=== PATIENT | female | born 1980 | race Caucasian/White ===

== ENCOUNTER 2018-12-04 14:30 | Inpatient (IN) ==
--- NOTE | 2018-12-04 13:42 | MH ---
cc: Pb Steen MD DATE OF ADMISSION: 12/04/2018 ADMITTING DIAGNOSES: 1. Intrauterine at 37-38 weeks. 2. Advanced maternal age. 3. Previous section. 4. Anterior low lying placenta. 5. Coagulation disorder. 6. Gunjan's thyroiditis. HISTORY OF PRESENT ILLNESS: The patient is a 38-year-old white female, para 1-0-3-1, with an EDC of 12/24/2018 by known in vitro fertilization dates. She has been followed by several specialists due to history of coagulation disorder and multiple losses. She has been maintained on anticoagulation and prednisone throughout the . She is now admitted for delivery at this time for the above-mentioned risk factors and the recommendation of the maternal specialist at the [facility] in [place]. PAST SURGICAL HISTORY: for failure to progress in 2003, she had breast augmentation in 2005, LASIK surgery in 2006, left breast biopsy in 2016. MEDICATIONS: 1. Vitamins. 2. Synthroid. 3. Heparin. 4. Prednisone. 5. Vitamins. ALLERGIES: VITAMIN B. OBSTETRIC HISTORY: One term delivery. Three spontaneous abortions. SOCIAL HISTORY: She is home, employed, . Alcohol, tobacco and drugs are none. PAST MEDICAL HISTORY: Gunjan's, coagulopathy, loss. PHYSICAL EXAMINATION: GENERAL: She is a well-nourished, well-developed white female. VITAL SIGNS: Stable. HEENT: Normal. CHEST: Clear. HEART: Regular rate. BREASTS: Symmetrical. ABDOMEN: Gravid. EFW of 3200 grams. PELVIC: Cervix is closed. LABORATORY DATA: Strep culture was negative. ASSESSMENT: As above. She is now admitted for repeat section. While in the office, the risks and benefits, and complications including infection, injury, bleeding, risk of prematurity, post-delivery hemorrhage were explained and accepted. She may need steroid boost due to her chronic steroid intake during . The patient understands the risk and benefits and complications including the risk of prematurity versus the risk of loss and bleeding if the is maintained. MD JAYA Cevallos/jen , 01:19 PM , 01:29 PM
[2018-12-04] MEDS ORDERED: Citric Acid/Sodium Citrate Liq 30 ML UDC PO SCH (15:15)
[2018-12-04] MEDS ORDERED: ceFAZolin 2 GM Premix Inj 2 GM/50 ML PIGGYBACK IV.SIG SCH (16:00)
[2018-12-04 16:16] LABS: Baso % (Auto) 0.3 % (0.0-2.0); Eos # (Auto) 0.1 th/mm3 (0.0-0.4); Eos % (Auto) 0.7 % (0.0-4.0); Hematocrit 43.3 % (35.0-46.0); Lymph # (Auto) 2.5 th/mm3 (1.0-4.8); Lymph % (Auto) 15.5 % (9.0-44.0); Mean Corpuscular HGB Conc 34.7 % (32.0-36.0); Mean Corpuscular Hemoglobin 34.2 pg (27.0-34.0); Mean Corpuscular Volume 98.4 fL (80.0-100.0); Mean Platelet Volume 10.5 fL (7.0-11.0); Mono # (Auto) 1.2 th/mm3 (0.0-0.9); Mono % (Auto) 7.4 % (0.0-8.0); Neut # (Auto) 12.5 th/mm3 (1.8-7.7); Neut % (Auto) 76.1 % (16.0-70.0); Platelet Count 168 th/mm3 (150-450); Red Cell Distribution Width 13.5 % (11.6-17.2); White Blood Count 16.4 th/mm3 (4.0-11.0)
[2018-12-04 16:20] LABS: Activated Partial Thrombo Time 28.8 sec (23.4-31.7); INR 0.9 Ratio; Prothrombin Time 9.4 sec (9.8-11.6)
[2018-12-04 16:29] LABS: Bilirubin,Urine Negative (Negative); Clarity,Urine Hazy (Clear); Color,Urine Yellow (Yellw/Straw); Glucose,Urine (UA) Negative (Negative); Leukocyte Esterase,Urine Negative (Negative); Nitrite,Urine Negative (Negative); Specific Gravity,Urine 1.012 (1.002-1.035)
[2018-12-04] MEDS ORDERED: Morphine Sulfate PF Inj 5 MG/10 ML Ampul ONE (16:40)
[2018-12-04] MEDS ORDERED: Senna/Docusate Sodium 8.6/50 MG Tablet PO PRN (17:11)
[2018-12-04] MEDS ORDERED: Simethicone 80 MG Chew Tablet PO PRN (17:11)
[2018-12-04] MEDS ORDERED: Oxytocin 30 Units/500ml Premix 30 UNITS/500 ML BAG IV.SIG ONE (17:11)
[2018-12-04] MEDS ORDERED: Zolpidem Tartrate 5 MG Tablet PO PRN (17:11)
[2018-12-04] MEDS ORDERED: Ketorolac Inj 30 MG/ML (IVP) Vial IV.PUSH PRN (17:13)
--- NOTE | 2018-12-04 19:48 | MP ---
cc: Pb Steen MD DATE OF OPERATION: 12/04/2018 PREOPERATIVE DIAGNOSES: 1. at 37-38 weeks. 2. Advanced maternal age, 38. 3. Previous . 4. Multiple coagulopathies. 5. Anterior low lying placenta. 6. History of multiple losses, 3. POSTOPERATIVE DIAGNOSES: 1. at 37-38 weeks, delivered. 2. Advanced maternal age, 38. 3. Previous . 4. Multiple coagulopathies. 5. Anterior low lying placenta. 6. History of multiple losses, 3. PROCEDURE PERFORMED: Repeat low transverse section. ANESTHESIA: Spinal. SURGEON: Pb Steen MD FLOOR CLEANER: DERRELL Ruiz ESTIMATED BLOOD LOSS: 100 mL. FLUIDS: 2 liters crystalloid. OBJECTIVE FINDINGS: Following induction of adequate spinal anesthesia, the patient was prepped and draped supine on the operating table in left lateral tilt position in usual sterile fashion, with the bladder being drained via Angulo catheterization. The abdomen was opened through a Pfannenstiel incision using a knife to excise her old scar. Fascia was opened transversely, stripped from muscles, the rectus muscles midline and the peritoneum opened sharply high. It became obvious at this point, there were extensive adhesions between the lower segment, the bladder and anterior abdominal wall and these were lysed sharply to take the bladder down from the operative site, low transverse for delivery. When retracted, this allowed the exposure of the lower segment. It was incised transversely with a knife and extended with blunt dissection. Membranes were ruptured with clear fluid. A viable vigorous female. The baby was in ROT position, LOT, the vacuum applied to the occiput and used to gently deliver the head through the abdominal wound. Mouth was suctioned. The cord clamped and cut, and the baby passed to awaiting team. Viable, vigorous female. Apgars 7 and 8. weight 5 pounds 11 ounces. Cord blood was taken for preservation per mother request; a cord segment for preservation; cord blood for typing; and the placenta for pathology. Uterine gutters were wiped cleaned with laps, the uterus exteriorized, and the anatomy identified. Uterus was closed in 2 layers with running suture, first with a running locking stitch of 0 Vicryl, second running imbricating stitch of 0 Vicryl. Areas of oozing controlled with 2-0 chromic. Posterior inspection revealed normal uterus, tubes and ovaries. Uterus was placed back in the cavity, irrigation performed, and the bladder flap was coated with Sharona and then closed with a running 3-0 Vicryl. The adhesions of the sites on the anterior uterus were covered with Seprafilm. All laps and retractors removed. Counts were correct. The anterior peritoneum closed with running 2-0 Vicryl. Muscles irrigated, dusted with Sharona, and closed with a running locking stitch of 0 Vicryl, corner to the midline and tied, subcutaneous with running 3-0 Vicryl, the skin with a running subcuticular 3-0 Monocryl. Dermabond applied. All counts were correct and the patient was awakened and taken to the recovery room in good condition. MD JAYA Cevallos/ina , 06:23 PM , 06:31 PM
[2018-12-04] MEDS ORDERED: Naloxone Inj 0.4 MG/ML Vial IV.PUSH PRN (20:28)
[2018-12-04] MEDS: Levothyroxine 125 MCG Tablet PO SCH (22:07)
[2018-12-04] MEDS ORDERED: Oxytocin 30 Units/500ml Premix 30 UNITS/500 ML BAG IV.SIG PRN (22:11)
[2018-12-05 05:54] LABS: Baso % (Auto) 0.2 % (0.0-2.0); Eos % (Auto) 0.3 % (0.0-4.0); Hematocrit 32.7 % (35.0-46.0); Hemoglobin 12.1 gm/dL (11.6-15.3); Lymph # (Auto) 1.8 th/mm3 (1.0-4.8); Lymph % (Auto) 13.8 % (9.0-44.0); Mean Corpuscular Hemoglobin 35.3 pg (27.0-34.0); Mean Corpuscular Volume 95.7 fL (80.0-100.0); Mean Platelet Volume 9.7 fL (7.0-11.0); Mono # (Auto) 0.8 th/mm3 (0.0-0.9); Mono % (Auto) 6.1 % (0.0-8.0); Neut # (Auto) 10.4 th/mm3 (1.8-7.7); Neut % (Auto) 79.6 % (16.0-70.0); Platelet Count 158 th/mm3 (150-450); Red Blood Count 3.42 mil/mm3 (4.00-5.30); Red Cell Distribution Width 13.2 % (11.6-17.2); White Blood Count 13.1 th/mm3 (4.0-11.0)
[2018-12-05 05:56] LABS: Mean Corpuscular HGB Conc 36.9 % (32.0-36.0)
[2018-12-05] MEDS ORDERED: Levothyroxine 88 MCG Tablet PO SCH (06:00)
[2018-12-05 07:33] LABS: Platelet Estimate Normal (Normal)
[2018-12-05] MEDS ORDERED: Ibuprofen 400 MG Tablet PO PRN (10:47)
[2018-12-05] MEDS ORDERED: Acetaminophen 325 MG Tablet PO PRN (10:51)
[2018-12-05] MEDS ORDERED: Diphtheria/Tetanus/Pertussis Vaccine Inj 0.5 ML Syringe IM ONE (16:00)
[2018-12-05] MEDS ORDERED: Measles/Mumps/Rubella Vaccine Inj 0.5 ML Vial SQ ONE (16:00)
[2018-12-05] MEDS: Enoxaparin Inj 40 MG/0.4 ML Syringe SQ SCH (17:15)
[2018-12-05] MEDS: Levothyroxine 125 MCG Tablet PO SCH (21:14)
[2018-12-05] MEDS: Ibuprofen 600 MG Tablet PO PRN (23:52)
[2018-12-06] MEDS: Ibuprofen 600 MG Tablet PO PRN ×3 (06:03→21:29)
[2018-12-06] MEDS: Enoxaparin Inj 40 MG/0.4 ML Syringe SQ SCH (17:29)
[2018-12-06] MEDS: Levothyroxine 125 MCG Tablet PO SCH (21:30)
[2018-12-06 22:17] VITALS: RESP 18
[2018-12-06 22:18] VITALS: TEMP 97.9
[2018-12-07] MEDS: Ibuprofen 600 MG Tablet PO PRN ×2 (04:38→12:50)
[2018-12-07 08:35] VITALS: BP 113/79; PULSE 66
--- NOTE | 2018-12-07 09:56 | MD ---
cc: Pb Steen MD DATE OF DISCHARGE: ADMITTING DIAGNOSES: 1. at 37-38 weeks. 2. Advanced maternal age. 3. Previous section. 4. Coagulopathy. POSTOPERATIVE DIAGNOSES: 1. at 37-38 weeks. 2. Advanced maternal age. 3. Previous section. 4. Coagulopathy. PROCEDURE: Repeat low transverse section. HISTORY OF PRESENT ILLNESS: This is a 38-year-old white female, para 1-0-3-1, with an EDC of 12/24/2018 had a through IVF and her current regimen of steroids and anticoagulant therapy throughout the due to multiple coagulopathies and history of previous spontaneous x 3. Her first delivery by was advised by the maternal medicine specialist. HOSPITAL COURSE: She was admitted for repeat section on 12/04/2018, had a viable vigorous female, Apgars 7 and 8, weighing 5 pounds 11 ounces. Postop did well with gradual advancement of diet and activity. Discharged home in excellent condition on 12/07/2018. She will take her routine medications at home including Lovenox 40 mg subcutaneous every day for 6 weeks. She will take her vitamins thyroid medication she was given a prescription for Percocet 5 one p.o. every 4 hours p.r.n. pain, #30 refill 0, and she was given one for Motrin 600 mg p.o. every 6 hours p.r.n. pain, #30. MD JAYA Cevallos/ina , 09:34 AM , 09:40 AM
== END 2018-12-07 13:36 | disposition home or self-care (01) | DRG 787 ==
LOC: H2E 14:30 → H1EA 20:06
PROVIDERS: ADMIT Obstetrics & Gynecology; ATTEND Obstetrics & Gynecology
CPT/HCPCS: 59025; 81001; 85025; 85610; 85730; 86850; 86900; 86901; 88307; C1765; J0131; J1650; J1885; J2274; J7120